=== PATIENT | female | born 1990 ===

== ENCOUNTER 2016-09-02 04:55 | Inpatient (IN) | payer MEDICAID ==
[2016-09-02] MEDS ORDERED: LACTATED RINGERS 1,000 ML ONE (05:25)
[2016-09-02] MEDS ORDERED: IV START KIT ONE (05:25)
[2016-09-02] MEDS ORDERED: CEFAZOLIN SODIUM 2 GRAM DUPLEX 2 G in Premix (D5W) 50 ml 1 EACH IV PRN (05:28)
[2016-09-02] MEDS ORDERED: LACTATED RINGERS 1,000 ML IV SCH (05:30)
[2016-09-02 06:03] LABS: HEMATOCRIT 33.8 % (37.0-47.0); HEMOGLOBIN 10.8 gm/l (12.0-16.0); MEAN CELL VOLUME 85.1 fl (81.0-99.0); MEAN CORPUSCULAR HEMOGLOBIN 27.2 pg (27.0-31.0); RED CELL DISTRIBUTION WIDTH 14.6 % (11.5-14.5)
[2016-09-02 06:08] VITALS: BMI 27.0
[2016-09-02] MEDS ORDERED: CEFAZOLIN SODIUM 2 GRAM DUPLEX 50 ML IV ONE (07:02)
[2016-09-02] MEDS ORDERED: SPINAL PROCEDURAL TRAY 1 EACH ONE (07:16)
--- NOTE | 2016-09-02 07:30 | HP ---
Amanda Phipps : 1990 HISTORY OF PRESENT ILLNESS: This is a 26-year-old female admitted for a repeat section. Her estimated date of delivery is 09/09/2016. Her last period 12/04/2015 making her 39 weeks gestation. OB HISTORY: 3, para 1-0-1-1, one section of a 9 pound 8 ounce baby in [place]. She progressed to 10 cm and then had distress and baby was born with an infection. The other was a spontaneous , no dilation and curettage was performed. 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 Sexually transmitted disease negative. PAST MEDICAL HISTORY: Negative. ALLERGIES: Negative. PAST SURGICAL HISTORY: Cholecystectomy. SOCIAL HISTORY: Nonsmoker, nondrinker. FAMILY HISTORY: Negative. REVIEW OF SYSTEMS: Noncontributory. PHYSICAL EXAMINATION: GENERAL: This is a healthy female in no acute distress. HEENT: Normal. NECK: Supple. Thyroid not palpable. No masses. HEART: Regular sinus rhythm, no murmurs. LUNGS: Clear. ABDOMEN: Gravid. On last exam heart was present. She measured 38 cm and was a vertex presentation. PELVIC: Last pelvic exam cervix was closed, effaced, -4 station. IMPRESSION: Intrauterine at 39 weeks, previous section. PLAN: Repeat lower segment section. Risks, reasons, complications, alternatives discussed in Barbadian in laypersons terms, but not limited to the complications of infection, hemorrhage and anesthesia reactions. All questions were answered in Barbadian using simple language. JOB: [id number]
[2016-09-02] MEDS ORDERED: PROMETHAZINE HCL 25 MG/ML VIAL IM PRN (07:53)
[2016-09-02] MEDS ORDERED: EPHEDRINE SULFATE 50 MG/ML 1ML VIAL IV PRN (07:53)
[2016-09-02] MEDS ORDERED: DIPHENHYDRAMINE HCL 50 MG/1 ML VIAL IV PRN ×2 (07:53→08:25)
[2016-09-02] MEDS ORDERED: HYDROMORPHONE HCL 1 MG/ML SYRINGE IV PRN (07:53)
[2016-09-02] MEDS ORDERED: HYDROMORPHONE HCL 2 MG/ML SYRINGE IV PRN (07:53)
[2016-09-02] MEDS ORDERED: KETOROLAC TROMETHAMINE 30 MG/ML 1 ML VIAL IV SCH (07:53)
[2016-09-02] MEDS ORDERED: NALOXONE HCL 0.4 MG/ML VIAL IV PRN (07:53)
[2016-09-02] MEDS ORDERED: ONDANSETRON 4 MG/2ML 2 ML VIAL IV PRN (07:53)
[2016-09-02] MEDS ORDERED: DIPHENHYDRAMINE HCL 25 MG CAPSULE PO PRN (08:25)
[2016-09-02] MEDS ORDERED: LANOLIN 50 APPLIC/7G TUBE TP PRN (08:25)
--- NOTE | 2016-09-02 08:34 | PCMBPN ---
Brief Post Op Note: Date of Procedure: 09/02/16 Start Time: Preoperative Diagnosis: 1. intrauterine at 39 weeks, previous c section Postoperative Diagnosis: 1. Same Procedure: repeat lower segment cesarian section Surgeon: Baljit To Assist:ms tc chopra Anesthesia: ms lee, spinal Findings: term sized uterus, both ovaries and tubes normal, clear amniotic fluid , live baby girl, rot position, 10/10, weight 7 lbs 9 oz, placenta intact Condition: stable Complications: none IV Fluids: mLs of LR Urine Output: mLs Estimated Blood Loss: 500 mLs Tourniquet Time: N/A Specimens: N/A Implants: Drains: N/A closure axel. patient tolerated procedure well and was returned to recovery room in stable condition with jay draining clear yellow urine.
[2016-09-02] MEDS ORDERED: FENTANYL 100 MCG/2 ML VIAL ONE (08:37)
[2016-09-02] MEDS ORDERED: FENTANYL 100 MCG/2 ML VIAL IV PRN (09:12)
--- NOTE | 2016-09-02 09:50 | OP ---
Amanda Phipps : 1990 NAME OF OPERATION: Repeat lower segment section. PREOPERATIVE DIAGNOSIS: Intrauterine at 39 weeks with a previous section. POSTOPERATIVE DIAGNOSIS: Intrauterine at 39 weeks with a previous section. GROUND WORKER: Dr. Baljit To. CHILDR[employer] DIRECTOR: Ms. Paul. ANESTHESIA: Ms. Moy, Spinal. DESCRIPTION: Dictation begins with patient in the supine position after spinal anesthesia was achieved. The abdomen was prepared with Chloraprep and draped in the usual manner for pfannenstiel incision. After a timeout was performed the skin was tested and found to be with complete anesthesia and a knife was used to make a pfannenstiel incision above the previous incision. The dissection was carried down to the rectus abdominis fascia which was nicked with a knife and then carried laterally with Monge scissors. All bleeding points were clamped with Svetlana's and bovied. The superior portion of the fascia was grasped with Shelley clamps and median raphe divided with Monge scissors and a similar procedure was performed on the lower end of the incision. The muscle was then split in the mid portion and peritoneum identified, picked up with one Svetlana clamp, entered with Metzenbaum scissors and the peritoneum was stretched laterally. Findings included a term sized uterus. Both ovaries and tubes appeared normal. A [place] retractor was inserted into the lower end of the incision and the anterior visceroperitoneum was grasped with tissue forceps, nicked with Metzenbaum scissors, and then carried laterally with the same scissors. The bladder flap was then bluntly dissected down and placed underneath the Teddy retractor. A knife was then used to make a lower uterine incision which was stretched laterally. There was clear amniotic fluid noted. A live baby girl was delivered from the ROT position. Her was 10 and 10 at one and five minutes respectively and she weighed 7 pounds 9 ounces. With the baby out the cord was clamped twice with two Svetlana clamps, divided in between with Bandage scissors and the baby was then given to the nursing team for care. Cord blood was obtained and then the placenta was delivered manually and intact. The uterus was wiped clean of membranes and blood clots and then ring forceps were placed at the 3, 6, 9, and 12 o'clock positions of the uterus and the uterus was closed in two layers with #1 Chromic continuous interlocking sutures, the second layer imbricating the first. With complete hemostasis now and sponge and instrument count reported as correct the rectus abdominis muscle was reapproximated with four individual sutures of 1 Chromic material and then the fascia was closed in right and left halves using 1 Vicryl material in a continuous manner locking only the first stitch. Subcutaneous bleeding points were bovied. There was one additional bleeding point which required a figure of eight suture of the 1 Chromic material resulting in complete hemostasis. Now with subcutaneous tissue with complete hemostasis and sponge and instrument count reported as correct the skin was closed with axel. Estimated blood loss was 500 mL. The patient tolerated the procedure well and returned to recovery room in stable condition with a Childs draining clear yellow urine. She did receive Ancef prior to the incision. FINAL DIAGNOSIS: As above. JOB: [id number]
[2016-09-02] MEDS: DOCUSATE SODIUM 100 MG CAPSULE PO SCH ×2 (10:39→20:37)
[2016-09-02] MEDS: PRENATAL VIT/FE FUMARATE/FA 1 TABLET PO SCH (10:39)
[2016-09-02] MEDS ORDERED: SODIUM CHLORIDE 0.9% FLUSH 10 ML ONE (13:22)
[2016-09-02] MEDS: KETOROLAC TROMETHAMINE 30 MG/ML 1 ML VIAL IV SCH ×3 (14:32→20:58)
[2016-09-02] MEDS: OXYCODONE/ACETAMINOPHEN 5/325 MG TABLET PO PRN ×2 (18:14→23:00)
[2016-09-02] MEDS ORDERED: SIMETHICONE 80 MG TAB.CHEW PO PRN (21:04)
[2016-09-02] MEDS: IBUPROFEN 800 MG TABLET PO PRN (21:09)
[2016-09-03] MEDS: KETOROLAC TROMETHAMINE 30 MG/ML 1 ML VIAL IV SCH (03:47)
[2016-09-03] MEDS: OXYCODONE/ACETAMINOPHEN 5/325 MG TABLET PO PRN ×3 (05:45→18:06)
[2016-09-03] MEDS: IBUPROFEN 800 MG TABLET PO PRN ×3 (05:45→20:11)
[2016-09-03 08:13] LABS: HEMATOCRIT 31.2 % (37.0-47.0)
[2016-09-03] MEDS: PRENATAL VIT/FE FUMARATE/FA 1 TABLET PO SCH (09:56)
[2016-09-03] MEDS: DOCUSATE SODIUM 100 MG CAPSULE PO SCH ×2 (09:56→20:11)
--- NOTE | 2016-09-03 10:44 | PDOC44 ---
- Subjective Day: 1 (offers no complaints) Reports Pain Tolerable, Reports , Reports Lochia Light, Reports Tolerating Clear Liquids, Reports Tolerating Regular Diet, Denies Flatus, Denies Nausea, Denies Vomiting, Denies Fever - Objective Temp Pulse Resp BP Pulse Ox 98.1 F 78 16 107/54 100 09/03/16 07:46 09/03/16 07:46 09/03/16 07:46 09/03/16 07:46 09/02/16 12:00 Lab Results 09/03/16 07:51 Hgb 10.0 L Hct 31.2 L Current Medications Generic Name Dose Route Start Last Admin Trade Name Freq PRN Reason Stop Dose Admin Diphenhydramine HCl 25 - 50 mg 09/02/16 08:25 Benadryl PO Q6H PRN Itching (Mild/Moderate) Diphenhydramine HCl 25 - 50 mg 09/02/16 08:25 Benadryl IV Q6H PRN Itching (Severe) Docusate Sodium 100 mg 09/02/16 09:00 09/03/16 09:56 Colace PO 100 mg BID BHAVANA Administration Emollient Ointment 1 applic 09/02/16 08:25 09/03/16 09:57 [id number]-[id number] TP 1 tube PRN PRN Administration sore nipples Fentanyl Citrate 50 mcg 09/02/16 09:12 09/02/16 08:40 Fentanyl IV 50 mcg Q1H PRN Administration Pain Ibuprofen 800 mg 09/02/16 08:25 09/03/16 05:45 Motrin PO 800 mg Q8H PRN Administration Pain Multivi/Iron Carb/Fe Sulf/FA/Prenat 1 tab 09/02/16 09:00 09/03/16 09:56 Plus PO 1 tab DAILY BHAVANA Administration Oxycodone/Acetaminophen 1 - 2 tab 09/02/16 08:25 09/03/16 05:45 Percocet 5/325 PO 1 tab Q4H PRN Administration Pain (Moderate) Simethicone 80 mg 09/02/16 21:04 09/02/16 21:11 Mylicon PO 80 mg TID PRN Administration Gas Sodium Chloride 10 ml 09/02/16 17:00 09/03/16 09:54 Normal Saline 10ml Flush IV Not Given Q8HR BHAVANA Sodium Chloride 10 ml 09/02/16 13:22 09/02/16 14:36 Normal Saline 10ml Flush IV 10 ml PRN PRN Administration - Physical Exam General: Afebrile, No Acute Distress Psych/Mental Status: Mood/Affect Appropriate, Judgment/Insight Intact, Bonding Well Lungs: Clear to Auscultation Bilaterally, Normal Air Movement Breast: Soft, Skin intact, Nipples Intact, No Tenderness, No Erythema, No Engorged Fundus: Firm, Midline, Below Umbilicus, Other (nontender) Abdomen: Normal Bowel Sounds, Other (hasn't passed flatus yet, no bowel movement yet), No Tenderness, No Distention Genitourinary: Other (voiding without difficulty) Lochia: Light Extremities: No Tenderness Wound DESKTOP MANAGER: Well Approximated, [place] Intact, No Drainage, No Erythema, No Rash , No Edema - Problems:Assessment/Plan (1) Anemia, Status: Acute (2) 39 weeks gestation of Status: Acute (3) Previous delivery affecting , delivered Status: Acute
[2016-09-04] MEDS: OXYCODONE/ACETAMINOPHEN 5/325 MG TABLET PO PRN ×2 (02:01→09:58)
[2016-09-04] MEDS: IBUPROFEN 800 MG TABLET PO PRN ×3 (02:01→18:27)
--- NOTE | 2016-09-04 06:00 | PDOC39B ---
Hospital Course: ADMIT DATE: 09/02/16 DISCHARGE DATE: 09/04/16 ADMISSION DIAGNOSES: intrauterine at 39 weeks, previous cesarian section for repeat cesarian section PROCEDURES: repeat lower segment cesarian section HISTORY OF PRESENT ILLNESS: 26 year old G3 T1 L1 at 39 weeks 0 days presenting for repeat lower segment cesarian section HOSPITAL COURSE: The patient had an uneventful post course with the exception of anemia. By day of discharge the patient is ambulating, eating, voiding, and passing flatus without difficulty. Pain is controlled and lochia is appropriate. She is [] - Physical Exam Vital Signs: Temp Pulse Resp BP Pulse Ox 97.8 F 75 16 98/56 100 09/04/16 02:02 09/04/16 02:02 09/04/16 02:02 09/04/16 02:02 09/02/16 12:00 General: Afebrile, No Acute Distress Psych/Mental Status: Mood/Affect Appropriate, Judgment/Insight Intact, Bonding Well Lungs: Clear to Auscultation Bilaterally, Normal Air Movement Breast: Soft, Skin intact, Nipples Intact, No Tenderness, No Erythema, No Engorged Fundus: Firm, Midline, Below Umbilicus, Other (nontender) Abdomen: Normal Bowel Sounds, Other (passed flatus, no bowel movement yet), No Tenderness, No Distention Genitourinary: Other (voiding without difficulty) Lochia: Light Extremities: No Tenderness Wound: Dressing in Place, Dressing Clean/Dry/Intact, Well Approximated, [place] Intact, No Drainage, No Erythema, No Rash - Discharge Diagnosis (1) Anemia, Status: Acute (2) 39 weeks gestation of Status: Acute (3) Previous delivery affecting , delivered Status: Acute - Discharge Plan Condition: Stable Disposition: Home Additional Instructions: nothing in vagina x 6 weeks, take prescribed medications as written, office visit with dr grewal in 5 days. Prescriptions: Ibuprofen [Motrin] 800 mg PO Q8H PRN #30 tablet PRN Reason: Pain FERROUS SULFATE (65 Fe) [IRON FERROUS SULFATE 325 MG TABLET (SHF)] 325 mg PO DAILY #30 tab Oxycodone HCl/Acetaminophen [PERCOCET 5/325 MG TABLET (SHF)] 1 - 2 tab PO Q4H PRN #14 tablet PRN Reason: Pain (Moderate)
[2016-09-04] MEDS: DOCUSATE SODIUM 100 MG CAPSULE PO SCH (09:58)
[2016-09-04] MEDS: PRENATAL VIT/FE FUMARATE/FA 1 TABLET PO SCH (09:58)
[2016-09-04 20:53] VITALS: BP 109/63
== END 2016-09-04 22:18 | disposition home or self-care (01) | DRG 766 ==
LOC: FBC 04:55 → UNDOADMIN 04:55 → FBC 05:20
PROVIDERS: ADMIT Obstetrics & Gynecology; ATTEND Obstetrics & Gynecology
PROC: 10D00Z1 Extraction of Products of Conception, Low, Open Approach (ICD-10-PCS; principal; 2016-09-02)
DX: O34.211 Maternal care for low transverse scar from previous cesarean delivery (principal); Z3A.39 39 weeks gestation of pregnancy; Z37.0 Single live birth; O90.81 Anemia of the puerperium; D64.9 Anemia, unspecified

== ENCOUNTER 2016-09-10 11:04 | Outpatient (CLI) | payer MEDICAID | END 2016-09-10 12:00 | disposition home or self-care (01) | LOC: BABIESSH 11:04 | PROVIDERS: ATTEND Obstetrics & Gynecology | DX: O92.70 Unspecified disorders of lactation (principal) ==